=== PATIENT | male | born 1960 | race Caucasian/White ===

== ENCOUNTER 2021-10-01 17:14 | Emergency (ER) | payer OTHER ==
[~2021-10-01] VITALS: Ht 182.9 cm; Wt 88.6 kg
[2021-10-01] MEDS ORDERED: pilocarpine 2% ophthalmic drops 15ml RIGHTEYE ONE (19:35)
[2021-10-01 22:02] VITALS: BP 135/86
== END 2021-10-01 22:04 | disposition home or self-care (01) ==
LOC: ER 17:16
DX: H33.21 Serous retinal detachment, right eye (principal); E78.00 Pure hypercholesterolemia, unspecified; I10 Essential (primary) hypertension; G43.909 Migraine, unspecified, not intractable, without status migrainosus
CPT/HCPCS: 99283